=== PATIENT | male | born 1955 | race Asian ===

== ENCOUNTER 2021-12-05 10:35 | Emergency (ER) | payer OTHER, MEDICARE ==
[~2021-12-05] VITALS: Ht 175.3 cm; Wt 72.6 kg
[2021-12-05 10:40] VITALS: BP_SYST 139
--- NOTE | 2021-12-05 10:40 | NUR ---
Patient triaged and placed in waiting room. VSS and patient appears in no acute distress at this time. Accompanied by SELF, awaiting available bed, and MD notified of need for MSE.
--- NOTE | 2021-12-05 12:07 | NUR ---
RECEIVED PT FROM CHRIS COHEN. PT STATES HE HAS HAD A NOSE BLEED X4 DAYS, WENT TO URGENT CARE YESTERDAY WITH NO RESOLUTION FOR THE BLEEDING. PT STATES HE TAKE ASPIRIN DAILY. RESP E/U. ON R/A. NO COUGH OF SOB NOTED. NORMAL S1S2. DENIES N/V/D/C. SKIN CDI, WARM, NO EDEMA. DISTAL PULSES NORMAL. PT GIVEN ICE BAG AND EDUCATED ON USE AND INDICATIONS. PT VERBALIZED UNDERSTANDING.
--- NOTE | 2021-12-05 12:11 | NUR ---
Patient to ER bed H1 to gown for evaluation. Side rails up. Report given to PARMJIT PEREZ.
[2021-12-05] MEDS ORDERED: OXYMETAZOLINE HCL 0.05% NASAL SPRAY NS ONE (12:45)
--- NOTE | 2021-12-05 12:50 | NUR ---
DR. ACE ASSESSING PT AT THIS TIME.
--- NOTE | 2021-12-05 13:13 | NUR ---
PT MOVED TO ROOM 8.
--- NOTE | 2021-12-05 14:20 | NUR ---
DR. CARROLL AT BEDSIDE TO DISCUSS POC.
--- NOTE | 2021-12-05 14:30 | NUR ---
5.5CM RAPID RHINO PLACED TO RIGHT NARE WITH BALOON INFLATED. PT STATES HE FEELS PRESSURE IN NOSE BUT DENIES PAIN.
[2021-12-05 15:31] VITALS: BP_SYST 130
--- NOTE | 2021-12-05 15:31 | NUR ---
Patient given written and verbal discharge instructions and verbalizes understanding. ER MD discussed with patient the results and treatment provided. Patient in stable condition. ID arm band removed. Patient educated on pain management and to follow up with PMD. Pain Scale 0/10. Opportunity for questions provided and answered. Medication side effect fact sheet provided.
== END 2021-12-05 15:31 | disposition home or self-care (01) ==
LOC: SED 10:35
DX: R04.0 Epistaxis (principal); I10 Essential (primary) hypertension; Z88.0 Allergy status to penicillin; Z79.899 Other long term (current) drug therapy
CPT/HCPCS: 82962; 99284

== ENCOUNTER 2021-12-08 10:40 | Emergency (ER) | payer OTHER, MEDICARE ==
[~2021-12-08] VITALS: Ht 175.3 cm; Wt 72.6 kg
[2021-12-08 11:06] VITALS: BP_SYST 143
[2021-12-08] MEDS ORDERED: SILVER NITRATE APPLICATOR 1 STICK STICK..EA. TP ONE ×3 (13:00→15:45)
[2021-12-08] MEDS ORDERED: TRANEXAMIC ACID 1,000 MG/10 ML VIAL IV ONE (13:00)
[2021-12-08] MEDS ORDERED: LIDOCAINE/EPI 1% 1:100000 20 ML VIAL INJ ONE (13:15)
--- NOTE | 2021-12-08 13:37 | NUR ---
RECEIVED PT FROM CHRIS CARRILLO. PT HERE FOR NOSE BLEED. PT HAS AND RHINO ROCKET IN L NARE THAT WAS PLACE 3 DAYS AGO, HERE TO HAVE IT REMOVED. DENIES PAIN.
--- NOTE | 2021-12-08 13:37 | NUR ---
BROUGHT BACK TO BED #[address] GAO AT BEDSIDE PERFORMING PROCEDURE
[2021-12-08] MEDS ORDERED: CLIN-142 PO (13:46)
[2021-12-08] MEDS ORDERED: cloNIDine HCL 0.1 MG TABLET PO ONE (14:00)
--- NOTE | 2021-12-08 14:40 | NUR ---
DR. GAO PERFORMED CAUTERIZATION TO PT'S L NARE. PT STILL HAS BLEEDING FROM SITE.
--- NOTE | 2021-12-08 15:21 | NUR ---
Patient given written and verbal discharge instructions and verbalizes understanding. ER MD discussed with patient the results and treatment provided. Patient in stable condition. ID arm band removed. IV catheter removed intact and dressing applied, no active bleeding. Rx of CLINDAMYCIN given. Patient educated on pain management and to follow up with PMD. Pain Scale0/10. Opportunity for questions provided and answered. Medication side effect fact sheet provided.
[2021-12-08] MEDS ORDERED: TRANEXAMIC ACID 1,000 MG/10 ML VIAL ONE (15:37)
[2021-12-08] MEDS ORDERED: TRANEXAMIC ACID 1,000 MG/10 ML VIAL TP ONE (15:45)
--- NOTE | 2021-12-08 16:12 | NUR ---
PT'S NOSE STILL BLEEDING. DR. LOMELI AT BEDSIDE CAUTERIZED L NARE X2.
[2021-12-08] MEDS ORDERED: OXYMETAZOLINE HCL 0.05% NASAL SPRAY NS PRN (16:15)
[2021-12-08] MEDS ORDERED: cloNIDine HCL 0.1 MG TABLET ONE (16:22)
--- NOTE | 2021-12-08 16:30 | NUR ---
DR. STERLING AT BEDSIDE CAUTERIZING PT'S Oliver MAGDALENO.
--- NOTE | 2021-12-08 17:00 | NUR ---
PT HAS NOW DISCHARGE. READ PRIOR DISCHARGE NOTES.
[2021-12-08 17:38] VITALS: BP_SYST 150
== END 2021-12-08 15:26 | disposition home or self-care (01) ==
LOC: SED 10:40
DX: R04.0 Epistaxis (principal); I10 Essential (primary) hypertension; Z88.0 Allergy status to penicillin; Z79.899 Other long term (current) drug therapy
CPT/HCPCS: 99283; J3490